=== PATIENT | female | born 1975 | race Caucasian/White ===

== ENCOUNTER 2019-08-22 06:22 | Emergency (ER) | payer SELFPAY ==
[2019-08-22] MEDS ORDERED: HYDROcodone/Acetaminophen 5/325 mg Tablet ONE ×2 (09:56→10:01)
== END 2019-08-22 10:00 | disposition home or self-care (01) ==
LOC: ERS 06:22
DX: M54.5 Low back pain (principal); I10 Essential (primary) hypertension; Z79.899 Other long term (current) drug therapy
CPT/HCPCS: 99283